=== PATIENT | female | born 1995 | race African-American/Black ===

== ENCOUNTER 2017-02-11 13:33 | Emergency (ER) | payer OTHER, SELFPAY ==
[2017-02-11 13:58] LABS: Bilirubin Negative (Negative); Blood, Urine Negative (Negative); Glucose, Urine (Dipstick) Negative (Negative); Ketone, Urine Negative (Negative); Nitrite Negative (Negative); Protein, Urine (Dipstick) Negative (Neg-Trace); Urobilinogen 0.2 mg/dL (0.2-1.0)
[2017-02-11] MEDS ORDERED: Ondansetron ODT 8 MG TAB ONE (13:58)
== END 2017-02-11 14:30 | disposition home or self-care (01) ==
LOC: ERS 13:33
DX: R11.0 Nausea (principal)
CPT/HCPCS: 81003; 81025; 99284

== ENCOUNTER 2017-04-18 21:02 | Emergency (ER) | payer SELFPAY ==
[2017-04-18 22:02] LABS: #Lymphocytes 1.8 thou/uL (1.20-3.40); #Monocytes 0.4 thou/uL (0.11-0.59); #Neutrophils 3.1 thou/uL (1.40-6.50); %Basophils 0.7 % (0.0-1.0); %Eosinophils 0.6 % (0.0-10.0); %Monocytes 6.6 % (0.0-4.0); %Neutrophils 58.2 % (31.0-61.0); Hemoglobin 12.7 g/dL (12.0-16.0); Mean Corpuscular HGB CONC 32.8 g/dL (32.0-36.0); Mean Corpuscular Hemoglobin 28.3 pg (25.0-35.0); Mean Corpuscular Volume 86.4 fl (77.0-87.0); Mean Platelet Volume 7.3 fL (7.4-10.4); Platelet Count 243 thou/uL (130-400); RBC Distribution Width 14.1 % (11.5-14.5); Red Blood Cell (RBC) Count 4.48 mill/uL (4.00-5.20); White Blood Cell (WBC) Count 5.3 thou/uL (4.8-10.8)
[2017-04-18 22:23] LABS: ALT (SGPT) 15 U/L (8-55); AST (SGOT) 14 U/L (5-34); Albumin 4.7 g/dL (3.5-5.0); Alkaline Phosphatase 67 U/L (40-150); Anion Gap 15 mmol/L (10-20); BUN (Urea Nitrogen) 9 mg/dL (7.0-18.7); Bilirubin, Total 0.5 mg/dL (0.2-1.2); Calc. Creatinine Clearance 0 mL/min (70-130); Calcium 9.9 mg/dL (7.8-10.44); Carbon Dioxide 22 mmol/L (22-29); Chloride 106 mmol/L (98-107); Estimated GFR-MDRD Greater than 90; Globulin 3.3 g/dL (2.4-3.5); Glucose 95 mg/dL (70-105); Lipase 10 U/L (8-78); Potassium 3.7 mmol/L (3.5-5.1); Sodium 139 mmol/L (136-145)
[2017-04-18 23:31] LABS: Bilirubin Negative (Negative); Blood, Urine Trace (Negative); Clarity CLOUDY (Clear); Glucose, Urine (Dipstick) Negative (Negative); Leukocyte Small (Negative); Nitrite Positive (Negative); Protein, Urine (Dipstick) 30 mg/dL (Neg-Trace); Specific Gravity, Urine 1.028 (1.002-1.036); Urobilinogen 0.2 mg/dL (0.2-1.0); pH, Urine 5.5 (5.0-9.0)
[2017-04-18 23:34] LABS: Bacteria/HPF 4+ HPF (None Seen); WBC/HPF 21-50 HPF (0-3)
[2017-04-18 23:55] LABS: Pathc Cast-AUWi Flag 3.89 (0-2.49)
[2017-04-18 23:56] LABS: Pregnancy Test - Urine (BHCG) Negative (Negative); Pregu Control Background? CLEAR/WHITE (CLR/WHITE); Pregu Control Bar Appear? YES (CONTROL BAR); Specific Gravity 1.028 (1.002-1.036)
[2017-04-18 23:59] LABS: Hyaline Casts/LPF NONE SEEN LPF (0-3 Hyaline); Other Casts/LPF None Seen LPF (0-3 Hyaline)
== END 2017-04-18 23:56 | disposition home or self-care (01) ==
LOC: ERS 21:02
DX: F41.0 Panic disorder [episodic paroxysmal anxiety] (principal)
CPT/HCPCS: 80053; 81003; 81015; 81025; 83690; 85025; 96360; 96361

== ENCOUNTER 2017-07-23 19:16 | Emergency (ER) | payer SELFPAY ==
[2017-07-23] MEDS ORDERED: Mag-Al 1200 mg/1200 mg/30 ML UDCUP ONE (20:23)
[2017-07-23] MEDS ORDERED: Lidocaine Viscous Sol 2% 15 ml UD Cup ONE (20:23)
[2017-07-23] MEDS ORDERED: Ondansetron ODT 8 MG TAB ONE (20:23)
[2017-07-23 20:35] LABS: Bilirubin Negative (Negative); Blood, Urine Trace (Negative); Clarity CLOUDY (Clear); Glucose, Urine (Dipstick) Negative (Negative); Leukocyte Moderate (Negative); Nitrite Positive (Negative); Protein, Urine (Dipstick) Trace mg/dL (Neg-Trace); Specific Gravity, Urine 1.028 (1.002-1.036)
[2017-07-23 20:37] LABS: Bacteria/HPF 4+ HPF (None Seen); Pathc Cast-AUWi Flag 3.36 (0-2.49)
[2017-07-23 20:42] LABS: #Basophils 0.1 thou/uL (0.0-0.2); #Eosinphils 0.2 thou/uL (0.0-0.7); #Lymphocytes 1.9 thou/uL (1.20-3.40); #Monocytes 0.5 thou/uL (0.11-0.59); #Neutrophils 2.5 thou/uL (1.40-6.50); %Basophils 1.1 % (0.0-1.0); %Eosinophils 3.3 % (0.0-10.0); %Lymphocytes 36.7 % (21.0-51.0); %Neutrophils 49.9 % (42.0-75.0); Hemoglobin 12.5 g/dL (12.0-16.0); Mean Corpuscular HGB CONC 34.2 g/dL (32.0-36.0); Mean Corpuscular Hemoglobin 29.1 pg (27.0-31.0); Mean Platelet Volume 7.1 fL (7.4-10.4); Platelet Count 197 thou/uL (130-400); White Blood Cell (WBC) Count 5.1 thou/uL (4.8-10.8)
[2017-07-23 20:46] LABS: Hyaline Casts/LPF 0-3 HYALINE CAST LPF (0-3 Hyaline); Manual Microscopic Reviewed? No Path Casts Seen; Yeast-All Forms None Seen HPF (None Seen)
[2017-07-23 20:50] LABS: BHCG - Serum Negative (NEGATIVE); Pregs Control Background? CLEAR/WHITE (CLR/WHITE); Pregs Control Bar Appear? YES (CONTROL BAR)
[2017-07-23 21:03] LABS: ALT (SGPT) 10 U/L (8-55); AST (SGOT) 12 U/L (5-34); Albumin 4.3 g/dL (3.5-5.0); Alkaline Phosphatase 67 U/L (40-150); Anion Gap 13 mmol/L (10-20); BUN (Urea Nitrogen) 6 mg/dL (7.0-18.7); Bilirubin, Total 0.4 mg/dL (0.2-1.2); Calc. Creatinine Clearance 0 mL/min (70-130); Calcium 9.4 mg/dL (7.8-10.44); Carbon Dioxide 23 mmol/L (22-29); Chloride 106 mmol/L (98-107); Estimated GFR-MDRD Greater than 90; Globulin 3.4 g/dL (2.4-3.5); Glucose 93 mg/dL (70-105); Lipase 12 U/L (8-78); Potassium 3.7 mmol/L (3.5-5.1); Protein, Total 7.7 g/dL (6.0-8.3); Sodium 138 mmol/L (136-145)
[2017-07-23] MEDS ORDERED: Ciprofloxacin 500 MG TAB ONE (21:03)
== END 2017-07-23 21:05 | disposition home or self-care (01) ==
LOC: ERS 19:16
DX: N30.00 Acute cystitis without hematuria (principal)
CPT/HCPCS: 36415; 80053; 81003; 81015; 83690; 84703; 85025; 99284

== ENCOUNTER 2018-06-14 23:24 | Emergency (ER) | payer OTHER, SELFPAY ==
[2018-06-15 00:12] LABS: #Basophils 0.1 thou/uL (0.0-0.2); #Eosinphils 0.1 thou/uL (0.0-0.7); #Lymphocytes 2.6 thou/uL (1.20-3.40); #Monocytes 0.5 thou/uL (0.11-0.59); #Neutrophils 6.7 thou/uL (1.40-6.50); %Basophils 0.8 % (0.0-1.0); %Eosinophils 1.2 % (0.0-10.0); %Lymphocytes 25.7 % (21.0-51.0); %Monocytes 5.4 % (0.0-10.0); %Neutrophils 66.9 % (42.0-75.0); Hemoglobin 11.8 g/dL (12.0-16.0); Mean Corpuscular HGB CONC 34.9 g/dL (32.0-36.0); Mean Corpuscular Hemoglobin 30.6 pg (27.0-31.0); Mean Corpuscular Volume 87.7 fL (78.0-98.0); Mean Platelet Volume 7.3 fL (7.4-10.4); Platelet Count 226 thou/uL (130-400); RBC Distribution Width 12.4 % (11.5-14.5); Red Blood Cell (RBC) Count 3.85 mill/uL (4.20-5.40); White Blood Cell (WBC) Count 9.9 thou/uL (4.8-10.8)
[2018-06-15 00:25] LABS: Anion Gap 12 mmol/L (10-20); BUN (Urea Nitrogen) 7 mg/dL (7.0-18.7); Calc. Creatinine Clearance 0 mL/min (70-130); Calcium 9.3 mg/dL (7.8-10.44); Carbon Dioxide 23 mmol/L (22-29); Chloride 107 mmol/L (98-107); Estimated GFR-MDRD Greater than 90; Glucose 83 mg/dL (70-105); Potassium 4.2 mmol/L (3.5-5.1); Sodium 138 mmol/L (136-145)
[2018-06-15 00:37] LABS: Bilirubin Negative (Negative); Blood, Urine Negative (Negative); Clarity CLOUDY (Clear); Glucose, Urine (Dipstick) Negative (Negative); Leukocyte Small (Negative); Nitrite Positive (Negative); Protein, Urine (Dipstick) Negative (Neg-Trace); Specific Gravity, Urine 1.027 (1.002-1.036); pH, Urine 6.5 (5.0-9.0)
[2018-06-15 00:40] LABS: Bacteria/HPF 4+ HPF (None Seen); Hyaline Casts/LPF 7-10 HYALINE CAST LPF (0-3 Hyaline); WBC/HPF 21-50 HPF (0-3)
[2018-06-15 00:41] LABS: Pathc Cast-AUWi Flag 2.58 (0-2.49)
[2018-06-15 00:56] LABS: Other Casts/LPF None Seen LPF (0-3 Hyaline)
[2018-06-15 00:57] LABS: Crystals/HPF 1+ CA OXALATE HPF (Negative)
[2018-06-15] MEDS ORDERED: Nitrofurantoin Macrocrystal 50 MG CAP PO SCH (01:15)
--- NOTE | 2018-06-15 08:23 | ULT ---
PRELIMINARY REPORT/[facility]/EMERGENCY AFTER HOURS PROCEDURE: EXAM: US , Limited EXAM DATE/TIME: 06/15/2018 12:54 AM CLINICAL HISTORY: 23 years old, female; complicated by abdominal or pelvic pain; Lower; Second trimester; Gestational age or lmp: 15w3d; ; Patient HX: Pelvic cramping pain x 2 days, no vag bleed TECHNIQUE: Imaging protocol: Real-time ultrasound of the maternal uterus with image documentation. Exam focused on the clinical indication. COMPARISON: No relevant prior studies available. FINDINGS: GESTATION: Gestation: Single live intrauterine gestation. Heart rate: heart rate 150 beats per minute. Presentation: Variable positioning Placenta: Anterior placenta. Incomplete evaluation for placental previa on this exam. Amniotic fluid: Visually adequate amniotic fluid. Heart: Limited 4 chamber cardiac view visualized. Abdomen: Stomach visualized. Kidney: Kidneys visualized. Umbilical cord and insertion: Cord insertion visualized. 3 vessel cord visualized. BIOMETRY: Estimated gestational age: Estimated ultrasound age 15 weeks and 3 days. Clinical age based on LMP of 03/03/2018 is 14 weeks and 6 days. Estimated due date: Estimated date of delivery by ultrasound is 12/04/2018. Biparietal diameter: 2.9 cm, 15 weeks 1 day Head circumference: 11.4 cm, 15 weeks 4 days Abdominal circumference: 9.6 cm, 15 weeks 5 days Femur length: 1.8 cm, 15 weeks, 3 days MATERNAL: Cervix: Cervical length 3 cm on transabdominal view. Right adnexa: No right adnexal mass. Left adnexa: No left adnexal mass. IMPRESSION: 1. Single living intrauterine with estimated sonographic age of 15 weeks and 3 days. Size a nd dates are concordant. 2. No abnormality identified. Limited evaluation of organs due to the early gestation and limit ed evaluation for placenta previa. Routine followup recommended. Thank you for allowing us to participate in the care of your patient. Dictated and Authenticated by: Rosemarie Ibarra MD 06/15/2018 2:10 AM Central Time ([place] & [place]) FINAL REPORT EMERGENCY AFTER HOURS ULTRASOUND OB LIMITED: Date: 06/15/18 FINDINGS/IMPRESSION: Final report is in agreement with the above provided preliminary interpretation from [facility]. CODE QA
== END 2018-06-15 01:20 | disposition home or self-care (01) ==
LOC: ERS 23:24
DX: O23.12 Infections of bladder in pregnancy, second trimester (principal); N30.90 Cystitis, unspecified without hematuria; Z3A.14 14 weeks gestation of pregnancy
CPT/HCPCS: 36415; 76815; 80048; 81003; 81015; 84702; 85025

== ENCOUNTER 2018-07-02 17:20 | Emergency (ER) | payer OTHER ==
[2018-07-02 17:57] LABS: Bilirubin Negative (Negative); Blood, Urine Negative (Negative); Clarity CLOUDY (Clear); Glucose, Urine (Dipstick) Negative (Negative); Leukocyte Moderate (Negative); Nitrite Negative (Negative); Protein, Urine (Dipstick) Negative (Neg-Trace); Specific Gravity, Urine 1.017 (1.002-1.036); Urobilinogen 0.2 mg/dL (0.2-1.0); pH, Urine 6.5 (5.0-9.0)
[2018-07-02 18:00] LABS: Bacteria/HPF 1+ HPF (None Seen); Hyaline Casts/LPF 4-6 HYALINE CAST LPF (0-3 Hyaline); Pathc Cast-AUWi Flag 1.08 (0-2.49); RBC/HPF 0-3 HPF (0-3); Squamous Epithelial 0-3 HPF (0-3); WBC/HPF 21-50 HPF (0-3)
[2018-07-02 22:05] LABS: Bilirubin Negative (Negative); Blood, Urine Negative (Negative); Clarity CLEAR (Clear); Glucose, Urine (Dipstick) Negative (Negative); Leukocyte Small (Negative); Nitrite Negative (Negative); Protein, Urine (Dipstick) Negative (Neg-Trace); Specific Gravity, Urine 1.018 (1.002-1.036); Urobilinogen 0.2 mg/dL (0.2-1.0)
[2018-07-02 22:11] LABS: Bacteria/HPF Rare-Few HPF (None Seen); Hyaline Casts/LPF 0-3 HYALINE CAST LPF (0-3 Hyaline); Pathc Cast-AUWi Flag 0.13 (0-2.49); RBC/HPF 0-3 HPF (0-3); Squamous Epithelial 0-3 HPF (0-3)
== END 2018-07-02 23:26 | disposition home or self-care (01) ==
LOC: ERS 17:20
DX: O23.12 Infections of bladder in pregnancy, second trimester (principal); Z3A.18 18 weeks gestation of pregnancy
CPT/HCPCS: 81003; 81015; 87086; 99283

== ENCOUNTER 2018-10-13 22:30 | Day surgery (SDC) | payer OTHER ==
[2018-10-13 23:03] VITALS: BP 109/65; TEMP 98.2; BMI 30.9
[2018-10-13] MEDS ORDERED: hydrALAZINE 20 MG/ML VIAL SLOW IVP PRN (23:41)
--- NOTE | 2018-10-13 23:42 | PDOC.EVN ---
Event Note - Event Note Event Note: OBGYN Attending No evidence acute labor Case reviewed with Dr Fuller I have assessed the clinical care/patient and agree with assessment (probable discomforts of ). Cleared for DC to home
--- NOTE | 2018-10-14 00:39 | PDOC.FPROB ---
FMR OB H&P: HPI - History of Present Illness Chief Complaint: Contractions Indentification: 23 year old at 32.6 wks History of Present Illness: 23 year old at 32.6 wks by 15.3 wk mary here at [facility] presents with what she perceived as painful contractions while at work tonight at around 22:00. Patient reports that one contraction was very painful. Since then, she feels she has been isaiah every 8 minutes, although they are more mild than what they were earlier in the night. Patient also endorses bilateral upper leg pain. She states that she works a lot and has not been this active previously. She has been working 6-7 days a week and is always on her feet. Patient states that she usually drinks "quite a bit of water". However, over the last day, she has only had about 3 cups. Patient denies vaginal bleeding, vaginal discharge, LoF. Primary Care Physician: Dr. Cleary FMR OB H&P: Current - Care : 2 Para: 1001 Gestational age: 32.6 Dating Criteria: 15.3 wk mary by [facility] FMR OB H&P: History - Past Medical History PMH: Migraine headaches - OB History OB History: Insignificant - [employer] WORK[employer] History [employer] History: Denies history of abnormal Pap smear or STD's - Surgical History Sx History: Unknown neck surgery as infant - Social History Social History: Denies tobacco, alcohol, or drug use - Family History Family History: Denies significant family history FMR OB H&P: Medications - Current Home Medications: Medication Instructions Recorded Confirmed Type No Known 10/13/18 10/13/18 History Allergies/Adverse Reactions: Allergies Allergy/AdvReac Type Severity Reaction Status Date / Time No Known Drug Allergies Allergy Verified 11/06/16 22:36 FMR OB H&P: ROS - Review of Systems General: denies: fever/chills, weight/appetite/sleep changes Eyes: denies: vision changes, scotomas ENT: denies: nasal congestion, rhinorrhea, sore throat Cardiovascular: denies: chest pain, palpitation, edema Respiratory: denies: cough, congestion, shortness of breath Gastrointestinal: reports: abdominal pain. denies: nausea, vomiting, diarrhea, constipation Genitourinary (Female): reports: contractions. denies: dysuria, vaginal discharge, vaginal pain, vaginal bleeding Musculoskeletal: denies: pain, stiffness Neurologic: denies: numbness, loss of counsciousness Integumentary: denies: itching, rash, lesions Hematologic/Lymphatic: denies: prolonged or excessive bleeding Psychological: denies: depression, anxiety FMR OB H&P: Vital Signs - Maternal Vital signs: Vital Signs - First Documented Temp Pulse Resp BP Pulse Ox 98.2 F 91 18 109/65 98 10/13/18 23:00 10/13/18 23:00 10/13/18 23:00 10/13/18 23:00 10/13/18 23:00 - Heart Tones Baseline: 140 Variability: moderate Acceleration: present Deceleration: absent [place] contractions every: None FMR OB H&P: Physical Exam - Physical Exam General: NAD, awake, alert and oriented HEENT: EOMI, grossly normal vision, grossly normal hearing Heart: RRR, no murmurs/rubs/gallops General: CTAB, no respiratory distress Abdomen: soft, gravid, non-tender Musculoskeletal: pulses present, FROM in all four extremities Neurological: no tremor, no focal deficit Skin: no rash, capillary refill <2 seconds Psychiatric: intact recent and remote memory, good judgement and insight FMR OB H&P: A/P - Problem List (1) Current Visit: Yes Status: Acute (2) Migraine Current Visit: Yes Status: Acute Code(s): G43.909 - MIGRAINE, UNSP, NOT INTRACTABLE, WITHOUT STATUS MIGRAINOSUS Disposition: 23 year old at 32.1 wks presents with contraction 1. sIUP - at 32.1 wks - No contractions on toco - Patient carrying on conversation for 20 minutes without evidence of contractions - Patient endorses more upper leg pain, and states she has been more active than usual during this - Patient does not appear to be in PTL - Reactive strip - Perceived contractions likely uterine irritability from dehydration. Patient PO hydrated and counseled on water intake in . - Plan for d/c home with labor precautions 2. Migraine headaches - Controlled Dispo: D/c home with labor precautions. Discussion: Date/Time: 10/14/18 0039 This H&P was discussed with Dr. Simon who agrees with the above documentation and plan. Signature: Jennifer Fuller, PGY-3
== END 2018-10-13 23:55 | disposition home or self-care (01) ==
LOC: L&D/OP 22:30
PROVIDERS: ATTEND Obstetrics & Gynecology
DX: O99.89 Other specified diseases and conditions complicating pregnancy, childbirth and the puerperium (principal); M79.605 Pain in left leg; M79.604 Pain in right leg; O99.353 Diseases of the nervous system complicating pregnancy, third trimester; G43.909 Migraine, unspecified, not intractable, without status migrainosus; Z3A.32 32 weeks gestation of pregnancy
CPT/HCPCS: 99282

== ENCOUNTER 2018-12-04 23:34 | Inpatient (IN) | payer OTHER ==
[2018-12-05 00:06] VITALS: BMI 31.6
[2018-12-05] MEDS ORDERED: hydrALAZINE 20 MG/ML VIAL SLOW IVP PRN ×3 (00:30→11:52)
[2018-12-05] MEDS ORDERED: Morphine 4 MG/ML VIAL IM SCH (00:45)
--- NOTE | 2018-12-05 00:56 | PRG ---
DATE OF SERVICE: 12/05/2018 PRIMARY HOT ROLLER: Dr. Aburto. CHIEF COMPLAINT: Abdominal pain. HISTORY OF PRESENT ILLNESS: The patient is a 23-year-old, G3, P1 female with an intrauterine at 39 weeks and 4 days, who is presenting to Labor and Delivery with increased abdominal pain. She reports they began to intensify around 9 o'clock this evening. She is feeling that about every 4 to 5 minutes. The patient reports she has been having intermittent contractions over the last several weeks and again just had been getting intensified contractions. She denies any leakage of fluid, though, she has had some bloody show. Denies urinary urgency or frequency. She denies any recent illness, fever, fall, headache, chest pain, shortness of breath, nausea, vomiting, diarrhea, constipation, hip problems, knee problems, and muscle weakness. PAST MEDICAL HISTORY: Migraines. PAST SURGICAL HISTORY: She had neck surgery as an . SOCIAL HISTORY: Denies drug, alcohol, or tobacco use. ALLERGIES: NO KNOWN DRUG ALLERGIES. MEDICATIONS: vitamins. OB LABS: Unavailable at time of dictation. REVIEW OF SYSTEMS: Per HPI. PHYSICAL EXAMINATION: VITAL SIGNS: Blood pressure 120/63, heart rate of 90, respiratory rate 18, saturating 99% on room air, temperature 98.3. GENERAL: She appears to be in no acute distress. She is alert, oriented, cooperative, and pleasant to interact with. HEAD: Normocephalic and atraumatic. LUNGS: Clear to auscultation bilaterally. HEART: Has regular rate and rhythm. ABDOMEN: Gravid and soft, nontender. EXTREMITIES: Nontender, nonedematous. : Per nursing staff, cervix is 4 cm dilated, 80% effaced, -2 station. Her 4 cm dilation is unchanged from her last OB encounter with Dr. Aburto a few days ago. heart tracing shows the fetus with a baseline in the one-teens with moderate long-term variability, positive 15 x 15 accelerations, no decelerations. Contractions are about every 2 to 5 minutes apart. ASSESSMENT AND PLAN: The patient is a 23-year-old, G3, P1 female with an intrauterine at 39 weeks and 4 days, here for evaluation of labor. The patient's contractions have intensified. I will be rechecking her in the next 2 to 3 hours to see if there is any change to her cervix. If not, the patient will be discharged home. She is receiving 6 mg of morphine IM now. Fetus has a category 1 tracing and reactive NST. Repeat sve PT being admitted for labor. Dr aburto notified. Job ID: [id number] MTDD
[2018-12-05] MEDS ORDERED: Lidocaine 1% (PF) 30 ML VIAL SC PRN (06:05)
[2018-12-05] MEDS ORDERED: NS / Oxytocin 40 units/1000ml 1,000 ML IV PRN (06:05)
[2018-12-05] MEDS ORDERED: Ondansetron PF 4 MG/2 ML Vial IVP PRN ×3 (06:05→11:52)
[2018-12-05] MEDS ORDERED: Ibuprofen 800 MG TAB PO PRN (06:05)
[2018-12-05] MEDS ORDERED: Butorphanol Tartrate 1 MG/ML VIAL SLOW IVP PRN (06:05)
[2018-12-05] MEDS ORDERED: Lactated Ringer's 1,000 ML IV SCH ×2 (06:15)
[2018-12-05 06:33] LABS: Mean Corpuscular Hemoglobin 24.5 pg (27.0-31.0); Mean Corpuscular Volume 76.4 fL (78.0-98.0); Mean Platelet Volume 8.8 fL (7.4-10.4); Platelet Count 243 thou/uL (130-400); RBC Distribution Width 16.5 % (11.5-14.5); Red Blood Cell (RBC) Count 4.07 mill/uL (4.20-5.40); White Blood Cell (WBC) Count 9.7 thou/uL (4.8-10.8)
[2018-12-05] MEDS ORDERED: Fentanyl 4 mcg/Bup 0.1% Cadd 100 ML ONE (07:07)
[2018-12-05 07:15] LABS: Hep B Surf Ag Non-Reactive S/CO (NonReactive); Syphilis Antibody Nonreactive (Nonreactive); Syphilis Antibody Index 0.03 S/CO (<1.00 Non-Reactive)
[2018-12-05] MEDS ORDERED: Lidocaine 1.5%/Epinephrine 1:200,000 5 ML AMPUL IJ ONE (07:53)
[2018-12-05] MEDS ORDERED: ePHEDrine/0.9% NaCl/PF SYRINGE 50 mg/10 ml SLOW IVP PRN (08:02)
[2018-12-05] MEDS ORDERED: Promethazine HCl 25 MG/ML VIAL IM PRN (08:02)
[2018-12-05] MEDS ORDERED: Naloxone HCl 0.4 mg/ml Vial IVP PRN ×2 (08:02)
[2018-12-05] MEDS ORDERED: Acetaminophen 325 MG TAB PO PRN (08:02)
[2018-12-05] MEDS ORDERED: diphenhydrAMINE 50 MG/ML VIAL IVP PRN (08:02)
[2018-12-05] MEDS ORDERED: Lactated Ringer's 500 ML IV PRN (08:02)
[2018-12-05] MEDS ORDERED: Communication Order-Pharmacy FS SCH (08:15)
[2018-12-05] MEDS ORDERED: Fentanyl 4 mcg/Bupivacaine 0.1% Cassette 100 ML EPIDURAL SCH (08:15)
[2018-12-05] MEDS ORDERED: Penicillin G Potassium 5 MILL.UNITS VIAL ONE (08:16)
[2018-12-05] MEDS ORDERED: NS / Oxytocin 40 units/1000ml 1,000 ML ONE (10:32)
[2018-12-05] MEDS ORDERED: Lidocaine 1% (PF) 30 ML VIAL ONE (10:32)
--- NOTE | 2018-12-05 10:58 | PDOC.OPDEL ---
OB Operative/Delivery Note Delivery Dr/Surgeon: Evin Pre-Delivery Diagnosis: active labor Procedure/Post Delivery Dx: spontaneous vaginal delivery Weeks gestation: 39 Anesthesia: epidural - Findings A Sex: female - 1 min: 9 - 5 min: 9 - Additional Findings/Plan Placenta delivered: spontaneous Repaired Obstetrical Laceration: none Estimated blood loss: 75ml Post delivery plan: routine recovery
[2018-12-05] MEDS ORDERED: Benzocaine-Menthol 82.5 ML CAN TOP PRN (11:52)
[2018-12-05] MEDS ORDERED: HYDROcodone/Acetaminophen 5/325 mg Tablet PO PRN (11:52)
[2018-12-05] MEDS ORDERED: diphenhydrAMINE 25 MG CAP PO PRN (11:52)
[2018-12-05] MEDS ORDERED: Bisacodyl 10 MG SUPP PR PRN (11:52)
[2018-12-05] MEDS ORDERED: NS / Oxytocin 40 units/1000ml 1,000 ML IV SCH (11:52)
[2018-12-05] MEDS ORDERED: Lanolin Ointment 7 GM TUBE TOP PRN (11:52)
[2018-12-05] MEDS ORDERED: Milk Of Magnesia 30 ML UDCUP PO PRN (11:52)
[2018-12-05] MEDS: Ibuprofen 800 MG TAB PO SCH ×2 (14:19→21:56)
[2018-12-05] MEDS: Ferrous Sulfate 325 MG TAB PO SCH (16:29)
[2018-12-05] MEDS: HYDROcodone/Acetaminophen 5/325 mg Tablet PO PRN (18:02)
[2018-12-05] MEDS: Docusate Calcium (SURFAK) 240 MG CAP PO SCH (21:56)
[2018-12-06] MEDS: HYDROcodone/Acetaminophen 5/325 mg Tablet PO PRN ×3 (00:17→13:42)
[2018-12-06] MEDS: Ibuprofen 800 MG TAB PO SCH ×3 (05:23→21:29)
[2018-12-06 06:24] LABS: Hemoglobin 7.9 g/dL (12.0-16.0); Mean Corpuscular HGB CONC 32.6 g/dL (32.0-36.0); Mean Corpuscular Volume 76.6 fL (78.0-98.0); Mean Platelet Volume 8.3 fL (7.4-10.4); Platelet Count 204 thou/uL (130-400); RBC Distribution Width 16.4 % (11.5-14.5); Red Blood Cell (RBC) Count 3.15 mill/uL (4.20-5.40); White Blood Cell (WBC) Count 10.2 thou/uL (4.8-10.8)
[2018-12-06] MEDS: Ferrous Sulfate 325 MG TAB PO SCH ×2 (08:25→17:15)
[2018-12-06] MEDS: Docusate Calcium (SURFAK) 240 MG CAP PO SCH ×2 (08:25→21:29)
[2018-12-06] MEDS: Prenatal Vitamin 1 TAB PO SCH (08:25)
[2018-12-06] MEDS ORDERED: Adacel (T-DAP) 0.5 ML SYRINGE IM ONE (09:00)
--- NOTE | 2018-12-06 14:45 | PDOC.PP ---
Post Progress Note Post Day #: 1 Subjective: doing well, some cramps with nursing PO intake tolerated: yes Flatus: yes Ambulation: yes Vital Signs (12 hours) Temp Pulse Resp BP Pulse Ox 12/06/18 07:12 98.4 F 88 12 107/71 97 12/06/18 05:23 98.1 F 98 18 105/60 Weight Weight 173 lb - Physical Examination General: NAD Respiratory: non-labored breathing Abdominal: no distention Fundus firm & at: below umb Skin: no rash Neurological: no gross focal deficits Psychiatric: A&Ox3, normal affect Result Diagrams: 12/06/18 06:02 Additional Labs: Post Labs Blood Type O POSITIVE 12/05/18 06:20 Hep Bs Antigen Non-Reactive S/CO (NonReactive) 12/05/18 06:20 (1) Anemia Code(s): D64.9 - ANEMIA, UNSPECIFIED Status: Acute Qualifiers: Other causes of anemia: other cause, not classified (2) Vaginal delivery Code(s): O80 - ENCOUNTER FOR FULL-TERM UNCOMPLICATED DELIVERY Status: Acute - Assessment/Plan PPD1 doing well, no concerns, asymptomatic anemia.
[2018-12-07] MEDS: Ibuprofen 800 MG TAB PO SCH (05:38)
[2018-12-07 07:49] VITALS: BP 117/56; TEMP 98.8
--- NOTE | 2018-12-07 08:11 | PDOC.PP ---
Post Progress Note Post Day #: 2 Subjective: doing well, no sx of anemia PO intake tolerated: yes Flatus: yes Ambulation: yes Vital Signs (12 hours) Temp Pulse Resp BP Pulse Ox 12/07/18 07:05 98.8 F 90 12 117/56 L 97 12/06/18 23:41 98.5 F 92 18 119/56 L 12/06/18 20:25 98.2 F 86 13 104/56 L 97 Weight Weight 173 lb - Physical Examination General: NAD Respiratory: non-labored breathing Abdominal: no distention Psychiatric: A&Ox3, normal affect Result Diagrams: 12/06/18 06:02 Additional Labs: Post Labs Blood Type O POSITIVE 12/05/18 06:20 Hep Bs Antigen Non-Reactive S/CO (NonReactive) 12/05/18 06:20 (1) Anemia Code(s): D64.9 - ANEMIA, UNSPECIFIED Status: Acute Qualifiers: Other causes of anemia: other cause, not classified (2) Vaginal delivery Code(s): O80 - ENCOUNTER FOR FULL-TERM UNCOMPLICATED DELIVERY Status: Acute - Assessment/Plan PPD2 doing well, asymptomatic anemia. Iron BID at home reviewed, plan for DC today.
[2018-12-07] MEDS: HYDROcodone/Acetaminophen 5/325 mg Tablet PO PRN (08:40)
[2018-12-07] MEDS: Prenatal Vitamin 1 TAB PO SCH (08:40)
[2018-12-07] MEDS: Docusate Calcium (SURFAK) 240 MG CAP PO SCH (08:41)
[2018-12-07] MEDS: Ferrous Sulfate 325 MG TAB PO SCH (08:41)
== END 2018-12-07 13:00 | disposition home or self-care (01) | DRG 807 ==
LOC: L&D/OP 23:34 → L&D 12-05 06:51 → 3SW 12-05 13:30
PROVIDERS: ADMIT Obstetrics & Gynecology; ATTEND Obstetrics & Gynecology
PROC: 10E0XZZ Delivery of Products of Conception, External Approach (ICD-10-PCS; principal; 2018-12-05)
DX: O99.824 Streptococcus B carrier state complicating childbirth (principal); Z37.0 Single live birth; Z3A.39 39 weeks gestation of pregnancy; D64.9 Anemia, unspecified; O90.81 Anemia of the puerperium
CPT/HCPCS: 36415; 85027; 86780; 86850; 86900; 86901; 87340; J2001; J2270; J2540; J3490

== ENCOUNTER 2019-09-01 23:43 | Emergency (ER) | payer OTHER, SELFPAY ==
[2019-09-02 00:33] LABS: Bilirubin Negative (Negative); Blood, Urine Negative (Negative); Clarity Clear (Clear); Glucose, Urine (Dipstick) Normal (Negative); Ketone, Urine 10 mg/dL (Negative); Leukocyte 250 Leu/uL (Negative); Nitrite Negative (Negative); Protein, Urine (Dipstick) 20 mg/dL (Neg-Trace); Specific Gravity, Urine 1.032 (1.002-1.036); Urobilinogen Normal mg/dL (Less than 2); pH, Urine 5.5 (5.0-9.0)
[2019-09-02 00:34] LABS: Bacteria/HPF Rare-Few HPF (None Seen)
[2019-09-02 01:05] LABS: Pregnancy Test - Urine (BHCG) Negative (Negative); Pregu Control Background? CLEAR/WHITE (CLR/WHITE); Pregu Control Bar Appear? YES (CONTROL BAR); Specific Gravity 1.032 (1.002-1.036)
== END 2019-09-02 00:57 | disposition home or self-care (01) ==
LOC: ERS 23:43
DX: B37.3 Candidiasis of vulva and vagina (principal)
CPT/HCPCS: 81003; 81015; 81025

== ENCOUNTER 2020-04-03 15:09 | Emergency (ER) | payer SELFPAY ==
--- NOTE | 2020-04-03 16:01 | RAD ---
XR Chest 1 View Portable HISTORY: Chest pain,COVD POSITIVE ON 03/24/20 COMPARISON: None FINDINGS: The heart size is normal. The lungs are well expanded without focal areas of consolidation, pneumothorax or pleural effusions. IMPRESSION: No radiographic evidence of acute cardiopulmonary process.
[2020-04-03] MEDS ORDERED: Doxycycline 100 MG CAP PO SCH (16:30)
== END 2020-04-03 17:11 | disposition home or self-care (01) ==
LOC: ERS 15:09
DX: U07.1 COVID-19 (principal); J12.82 Pneumonia due to coronavirus disease 2019; J45.909 Unspecified asthma, uncomplicated
CPT/HCPCS: 71045; 93005

== ENCOUNTER 2020-07-13 07:53 | Emergency (ER) | payer BC, SELFPAY ==
[2020-07-13] MEDS ORDERED: Acetaminophen 500 MG TAB ONE (08:26)
== END 2020-07-13 09:14 | disposition home or self-care (01) ==
LOC: ERS 07:53
DX: N64.52 Nipple discharge (principal); R07.89 Other chest pain
CPT/HCPCS: 71045; 93005

== ENCOUNTER 2021-08-19 23:35 | Emergency (ER) | payer BC, SELFPAY ==
[2021-08-19 23:56] LABS: Pregnancy Test - Urine (BHCG) Negative (Negative); Pregu Control Background? CLEAR/WHITE (CLR/WHITE); Pregu Control Bar Appear? YES (CONTROL BAR)
[2021-08-19 23:57] LABS: Specific Gravity 1.016 (1.002-1.036)
[2021-08-19 23:59] LABS: Bacteria/HPF None Seen HPF (None Seen); Bilirubin Negative (Negative); Blood, Urine Trace (Negative); Clarity Extra Turbid (Clear); Glucose, Urine (Dipstick) Normal (Negative); Ketone, Urine Negative (Negative); Leukocyte Negative Leu/uL (Negative); Nitrite Negative (Negative); Protein, Urine (Dipstick) Negative (Neg-Trace); RBC/HPF 0-3 HPF (0-3); Specific Gravity, Urine 1.016 (1.002-1.036); Urobilinogen Normal mg/dL (Less than 2)
[2021-08-20 00:10] LABS: Squamous Epithelial 0-3 HPF (0-3); WBC/HPF 0-3 HPF (0-3)
[2021-08-20] MEDS ORDERED: Ondansetron ODT 8 MG TAB ONE (00:36)
== END 2021-08-20 00:44 | disposition home or self-care (01) ==
LOC: ERS 23:35
DX: R10.32 Left lower quadrant pain (principal); R11.0 Nausea
CPT/HCPCS: 81003; 81015; 81025; 99284; Q0162

== ENCOUNTER 2021-09-01 19:15 | Emergency (ER) | payer SELFPAY | END 2021-09-01 21:29 | disposition left against medical advice (07) | LOC: ERS 19:15 | DX: Z53.21 Procedure and treatment not carried out due to patient leaving prior to being seen by health care provider (principal) ==

== ENCOUNTER 2021-09-29 22:34 | Emergency (ER) | payer SELFPAY ==
[2021-09-29 23:52] LABS: #Lymphocytes 0.5 thou/uL (1.20-3.40); #Monocytes 0.7 thou/uL (0.11-0.59); %Basophils 0.2 % (0.0-1.0); %Eosinophils 0.1 % (0.0-10.0); %Lymphocytes 10.4 % (21.0-51.0); %Monocytes 12.6 % (0.0-10.0); %Neutrophils 76.7 % (42.0-75.0); Hemoglobin 13.3 g/dL (12.0-16.0); Mean Corpuscular HGB CONC 34.2 g/dL (32.0-36.0); Mean Corpuscular Hemoglobin 31.5 pg (27.0-31.0); Mean Corpuscular Volume 92.2 fL (78.0-98.0); Mean Platelet Volume 7.1 fL (7.4-10.4); Platelet Count 188 thou/uL (130-400); RBC Distribution Width 11.5 % (11.5-14.5); Red Blood Cell (RBC) Count 4.22 mill/uL (4.20-5.40); White Blood Cell (WBC) Count 5.2 thou/uL (4.8-10.8)
[2021-09-30 00:14] LABS: ALT (SGPT) 21 U/L (8-55); AST (SGOT) 18 U/L (5-34); Albumin 4.4 g/dL (3.5-5.0); Alkaline Phosphatase 50 U/L (40-110); Anion Gap 14 mmol/L (10-20); BUN (Urea Nitrogen) 5 mg/dL (7.0-18.7); Bilirubin, Total 0.3 mg/dL (0.2-1.2); Calc. Creatinine Clearance 0 mL/min (70-130); Calcium 9.3 mg/dL (7.8-10.44); Carbon Dioxide 24 mmol/L (22-29); Chloride 103 mmol/L (98-107); Estimated GFR 91; Globulin 3.3 g/dL (2.4-3.5); Glucose 82 mg/dL (70-105); Potassium 3.7 mmol/L (3.5-5.1); Protein, Total 7.7 g/dL (6.0-8.3); Sodium 137 mmol/L (136-145)
[2021-09-30] MEDS ORDERED: Ketorolac Tromethamine 30 MG/ML VIAL ONE (00:20)
[2021-09-30] MEDS ORDERED: Ondansetron PF 4 MG/2 ML Vial ONE (00:20)
[2021-09-30] MEDS ORDERED: Acetaminophen 500 MG TAB ONE (00:20)
[2021-09-30 00:31] LABS: Bacteria/HPF 4+ HPF (None Seen); Bilirubin Negative (Negative); Blood, Urine Trace (Negative); Clarity Clear (Clear); Glucose, Urine (Dipstick) Normal (Negative); Ketone, Urine 60 mg/dL (Negative); Leukocyte Negative Leu/uL (Negative); Nitrite Negative (Negative); Protein, Urine (Dipstick) 30 mg/dL (Neg-Trace); Urobilinogen Normal mg/dL (Less than 2)
[2021-09-30 00:32] LABS: Pregnancy Test - Urine (BHCG) Negative (Negative); Pregu Control Background? CLEAR/WHITE (CLR/WHITE); Pregu Control Bar Appear? YES (CONTROL BAR)
[2021-09-30 00:59] LABS: Lipase 16 U/L (8-78); Magnesium 1.7 mg/dL (1.6-2.6)
[2021-09-30] MEDS ORDERED: Iopamidol 370 76% 100 ML VIAL ONE (11:14)
== END 2021-09-30 02:00 | disposition home or self-care (01) ==
LOC: ERS 22:34
DX: U07.1 COVID-19 (principal); N39.0 Urinary tract infection, site not specified
CPT/HCPCS: 36415; 71045; 74177; 80053; 81003; 81015; 81025; 83605; 83690; 83735; 85025; 87040; 87077; 87086; 87186; 93005; 96361; 96374; 96375; J1885; J2405; Q9967; U0003; U0005

== ENCOUNTER 2022-03-05 23:27 | Emergency (ER) | payer SELFPAY | END 2022-03-06 01:42 | disposition home or self-care (01) | LOC: ERS 23:27 | DX: R09.81 Nasal congestion (principal) | CPT/HCPCS: 99283 ==

== ENCOUNTER 2022-04-22 08:09 | Emergency (ER) | payer SELFPAY ==
[2022-04-22] MEDS ORDERED: Ondansetron ODT 4 MG TAB ONE (08:31)
== END 2022-04-22 09:05 | disposition home or self-care (01) ==
LOC: ERS 08:09
DX: R11.2 Nausea with vomiting, unspecified (principal); R19.7 Diarrhea, unspecified
CPT/HCPCS: 99283; Q0162

== ENCOUNTER 2022-06-22 23:24 | Emergency (ER) | payer SELFPAY ==
[2022-06-22] MEDS ORDERED: Ondansetron ODT 4 MG TAB ONE (23:54)
[2022-06-23] MEDS ORDERED: Ondansetron PF 4 MG/2 ML Vial ONE (01:11)
[2022-06-23 01:12] LABS: BHCG - Serum Negative (NEGATIVE); Pregs Control Background? CLEAR/WHITE (CLR/WHITE); Pregs Control Bar Appear? YES (CONTROL BAR)
[2022-06-23 02:14] LABS: Bacteria/HPF 4+ HPF (None Seen); Bilirubin Negative (Negative); Blood, Urine Negative (Negative); Clarity Extra Turbid (Clear); Glucose, Urine (Dipstick) Normal (Negative); Ketone, Urine Negative (Negative); Leukocyte 500 Leu/uL (Negative); Nitrite 2+ (Negative); Protein, Urine (Dipstick) 20 mg/dL (Neg-Trace); RBC/HPF 0-3 HPF (0-3); Urobilinogen Normal mg/dL (Less than 2)
== END 2022-06-23 02:38 | disposition home or self-care (01) ==
LOC: ERS 23:24
DX: N30.00 Acute cystitis without hematuria (principal); J45.909 Unspecified asthma, uncomplicated
CPT/HCPCS: 36415; 81003; 81015; 84703; 99284; J2405; Q0162